=== PATIENT | female | born 1955 | race Caucasian/White ===

== ENCOUNTER 2019-11-29 08:46 | Emergency (ER) | payer MEDICARE, BC, SELFPAY ==
[2019-11-29 08:47] VITALS: BP 114/81; PULSE 66; RESP 16; TEMP 37.2; BMI 36.0
--- NOTE | 2019-11-29 09:45 | RAD_ITS ---
STUDY: X-RAY - PELVIS AND RIGHT HIP REASON FOR EXAM: Female, 63 years old. RIGHT HIP PAIN SINCE JUNE, painful to walk -- unable to straighten leg when laying down, had knee bent for AP supine view, but able to straighten leg more standing so pelvis and another AP hip done upright TECHNIQUE: 4 views of the pelvis and hip. COMPARISON: None. FINDINGS: There is a non-specific bowel gas pattern. Normal visualized soft tissue structures. Normal bilateral iliac wings, sacroiliac joints and visualized sacrum. Normal bilateral superior and inferior pubic rami. Normal pubic symphysis. Normal bilateral ischial tuberosities. Normal visualized femoral head. Normal acetabulum. Normal hip joint. RAD/HIP, UNI W/ Pelvis 2-3 Views IMPRESSION: Normal x-ray examination of the pelvis and hip. Electronically Signed: Govind Herbert DO at 10:48 EDT Tel [phone], Service support ,
--- NOTE | 2019-11-29 09:50 | ED.VIS.GEN ---
History of Present Illness Chief Complaint: Lower Extremity Injury Informant: Patient Onset: Month(s) Context: Gradual Onset Timing: Intermittent Current Severity: Severe Maximum Severity: Severe Narrative: Patient is a 63-year-old male with history of MS and currently on evaluation for right hip pain with Dr. Marmolejo resenting with acute worsening of her right hip pain. Patient states before her pain is been more of her groin region. She saw Dr. Marmolejo 2 weeks ago for it and she was started on Flexeril as well as tramadol. She has an MRI scheduled for Sunday, 3 days from now. She states last night she felt a pop in her right lateral hip and then another pop this morning. She states now her pain is more over her lateral hip. She denies any falls or trauma. She states she is having a hard time raising her leg because it still painful. She does not have actual weakness. Patient has had some mild lower back pain and she states she is also getting an MRI of her back this week. She did have cortisone injection 8 weeks ago by her orthopedist. Patient states she is been dealing with this hip issue since June 2019. Patient denies any associated numbness or tingling. She states she is had more swelling of her lower extremities bilaterally but attributes that to keeping her feet down more. She has the pain is better with rest and worse with movement. No acute injury or exacerbations that she can think of. Past Medical History - Allergies and Home Meds Allergies/Adverse Reactions: Allergies sulfamethoxazole [From Bactrim] Allergy (Verified 11/29/19 08:48) Swelling trimethoprim [From Bactrim] Allergy (Verified 11/29/19 08:48) Swelling Primary Care Physician: Cristhian Gonzalez MD [Primary Care Provider] - Past Medical History: - - Multiple sclerosis Surgical History: - - section Smoking Status: Never smoker Review of Systems General: Denies: Chills, Fever, Sweats Eyes: Denies: Visual changes - bilaterally, Diplopia ENT: Denies: Rhinorrhea, Sore throat Cardiovascular: Denies: Chest pain, Palpitations Respiratory: Denies: Dyspnea, Cough, Dyspnea on exertion Gastrointestinal: Denies: Abdominal pain, Nausea, Vomiting, Diarrhea, Melena, Hematochezia Genitourinary: Denies: Dysuria, Hematuria, Frequency Musculoskeletal: Reports: Swelling - Bilateral lower feet, Extremity Pain - Right hip. Denies: Back pain Skin: Denies: Rash, Wounds Neurological: Denies: Headache, Weakness, Numbness Physical Exam Vital Signs/Narrative: Vital Signs Temp Pulse Resp BP 11/29/19 08:47 98.9 F 66 16 114/81 H Inital Vital Signs reviewed: Yes General: Well nourished, Well developed, No Acute Distress Head: Normocephalic, Atraumatic Eyes: Perrl, EOMI ENT: Moist mucous membranes, No rhinorrhea Neck: Supple, Nontender Cardiovascular: Regular rate, Regular rhythm, No murmurs Respiratory: No distress, CTA bilaterally, Chest nontender Abdomen: Soft, Nontender, Nondistended, Normal bowel sounds Back: Nontender, Normal Inspection. Negative for: CVA tenderness, Spinal tenderness Extremities: No edema, Tenderness - Palpation over the right lateral hip with pain diffusely on range of motion. Difficult to evaluate range of motion secondary to pain., Edema - 2+ bilateral pedal edema, - - Equal strength 5/5 bilateral lower extremities with flexion and extension of the knees as well as dorsiflexion and plantarflexion Skin: Normal color, No rash Neurological: Alert, Oriented x3, Cranial nerves II-XII grossly intact, Normal Strength, Normal Sensation Psychological: Normal affect, Normal Mood Diagnostic/Tx/Re-eval - Medical Decision Making Clinical Impression(s) from Imaging Studies Hip/Pelvis X-Ray 11/29/19 09:45 IMPRESSION: Normal x-ray examination of the pelvis and hip. Electronically Signed: Govind Herbert DO at 10:48 EDT Tel [phone], Service support , She is a treated with acute exacerbation of her right hip pain. She felt a popping sensation when she denies any injury. I did check a x-ray which did not show any acute fracture. Patient was given 4 of IM morphine with significant improvement of her symptoms. She has tramadol and Flexeril for home. She has an MRI scheduled for Sunday and I believe she is stable for follow-up for this. Patient to be discharged home. She is given return precautions. She verbalizes agreement and understanding with this plan. Discharged home in stable condition. ED Disposition - Plan for ED Patient: Disposition: Home or Assisted Living Diagnosis: Right hip pain Instructions: ED Acute Pain [facility] Referrals: Cristhian Gonzalez MD [Primary Care Provider] - Additional Instructions: Please continue to follow-up with orthopedics since very important you get your MRI on Sunday. Your x-ray did not show any acute fracture however the exact cause of your hip pain is not clear. 10 you to take the medications prescribed as well as ibuprofen(Motrin) 3 times daily.
[2019-11-29] MEDS: Morphine 4 MG/ML Syringe IM (10:23)
[2019-11-29 11:36] VITALS: BP 128/103; PULSE 59; RESP 16; TEMP 36.1; O2SAT 97
== END 2019-11-29 11:37 | disposition home or self-care (01) ==
PROVIDERS: Emergency Provider Emergency Medicine; PCP Family Medicine
DX: M25.551 Pain in right hip (principal); G35 Multiple sclerosis; Z88.1 Allergy status to other antibiotic agents; Z88.2 Allergy status to sulfonamides; M54.5 Low back pain
CPT/HCPCS: 73502; 96372; 99283

== ENCOUNTER → 2024-06-27 | Outpatient (CLI) | payer MEDICARE, BC, SELFPAY ==
--- NOTE | 2024-06-27 12:13 | CT_ITS ---
CT RIGHT LOWER EXTREMITY WITH 3-D IMAGING CLINICAL INDICATION: OSTEOARTHRITIS TECHNIQUE: Axial CT images of the right lower extremity (including right hip, right knee, and right ankle) was performed without IV contrast material. Coronal and sagittal reformats were provided. The protocol utilizes one or more of the following dose reduction techniques: automated exposure control, adjustment of mA and/or kV according to patient size, and/or use of iterative reconstruction technique. RADIATION DOSAGE (If Supplied By Facility): CTDIvol = ( 18.86 ) mGy, DLP = ( 1219.82 ) mGycm COMPARISON: No relevant prior comparison study available FINDINGS: Bones: Normal right hip joint. There is tricompartment degenerative arthrosis of the right knee, most pronounced in the medial femorotibial compartment where there is joint space narrowing, marginal osteophyte formation, and subchondral sclerosis/cyst formation. Normal right ankle. Osseous structures are intact without evidence of fracture or dislocation. No lytic or blastic osseous masses. Soft Tissues: There is a small right knee joint effusion. There is a 1.3 cm ossified loose body in the intercondylar notch (axial series 2 image [id number]). The deep soft tissue structures are unremarkable. The superficial soft tissues are unremarkable without evidence of edema, hematoma, or foreign body. CT/Extremity Lower without Contra IMPRESSION: Tricompartment degenerative arthrosis of the right knee, most pronounced in the medial femorotibial compartment. Small right knee joint effusion, with a 1.3 cm osseous loose body in the intercondylar notch. Electronically Signed: Faizan West MD at 15:35 EST ,
== END | disposition home or self-care (01) ==
PROVIDERS: PCP Internal Medicine; Referring Provider Student in an Organized Health Care Education/Training Program; Visit Provider Student in an Organized Health Care Education/Training Program
DX: M17.11 Unilateral primary osteoarthritis, right knee (principal)
CPT/HCPCS: 73700

== ENCOUNTER 2024-07-21 11:53 | Observation (INO) | payer MEDICARE, BC, SELFPAY ==
--- NOTE | 2024-06-27 12:05 | EKG12_ITS ---
Test Reason : PREOP Blood Pressure : */* mmHG Vent. Rate : 77 BPM Atrial Rate : 77 BPM P-R Int : 158 ms QRS Dur : 112 ms QT Int : 368 ms P-R-T Axes : 62 28 16 degrees QTcB Int : 416 ms Normal sinus rhythm Incomplete right bundle branch block Inferior infarct , age undetermined Possible Anterolateral infarct , age undetermined Abnormal ECG Confirmed by GARIMA ROJAS, ASHLEE ([id number]), index editor SHAE LEON ([id number]) on 06/30/2024 6:41:22 AM Referred By: Montana Rivera Confirmed By: ASHLEE PAINTING MD
[2024-06-27 13:58] LABS: Absolute Lymphocyte Count 1.51 X10^3/uL (0.83-4.51); Absolute Neutrophil Count 6.8 X10^3/uL (2.0-7.7); Basophil# 0.05 X10^3/uL; Basophil% 0.5 % (0-1); Eosinophil# 0.23 X10^3/uL; Eosinophils% 2.4 % (0-5); Hematocrit 40.9 % (37-47); Hemoglobin 13.5 g/dL (12.0-15.0); Lymphocyte # 1.51 X10^3/ul (0.83-4.51); Lymphocyte % 15.9 % (19-41); Mean Corpuscular Hgb 30.2 pg (27.0-32.0); Mean Corpuscular Volume 91.5 fL (81-99); Mean Platelet Vol. 9.7 fl (6.2-12.0); Monocyte# 0.84 X10^3/uL; Monocyte% 8.8 % (0-10); NRBC Flagged by Analyzer 0 % (0-5); Neutrophil # 6.82 X10^3/uL (2.7-7.7); Neutrophil % 71.9 % (47-70); Platelet Count 430 K/mm3 (150-450); RBC Distribution Width CV 13.3 % (11.6-14.6); Red Blood Count 4.47 M/mm3 (4.2-5.4); White Blood Count 9.5 K/mm3 (4.4-11.0)
[2024-06-27 14:33] LABS: Albumin, Serum 3.6 g/dL (3.2-5.0); Anion Gap 6 (5-15); BUN 26 mg/dL (7-18); BUN/Creat Ratio 21.3 RATIO (10-20); Calcium,Total 9.8 mg/dL (8.5-10.1); Chloride 106 mmol/L (98-107); Creatinine, Serum 1.22 mg/dL (0.55-1.02); EST Glomerular Filtration Rate 46 mL/min (>60); Est Glom Filt Rate - Afr Amer 56 mL/min (>60); Glucose 123 mg/dL (74-106); Potassium 4.2 mmol/L (3.5-5.1); Sodium Level 137 mmol/L (136-145)
[2024-06-27 15:09] LABS: Magnesium 2.5 mg/dL (1.6-2.6)
--- NOTE | 2024-06-30 15:17 | PAT.ANESEVAL ---
Pre-Assessment Diagnosis/Proposed Procedure Planned Operative Procedure(s): ROBOTIC ASSISTED RIGHT TOTAL KNEE ARTHROPLASTY Anesthesia History Anesthesia History - car mechanic helper: Anesthesia History - car mechanic helper Hx Hospitalization No 06/24/24 14:03 Any Problems With Anesthesia No 06/24/24 14:03 Cholinesterase deficiency No 06/24/24 14:03 You/Your Family Experience No 06/24/24 14:03 fever (hyperthermia) with Relationship Recent Exposure to Contagious Disease Does patient have nerve No 06/24/24 14:03 stimulator Patient instructed to have device shut off --Does patient have Pacemaker or ICD? When Was Last Pacemaker Check QUESTION #4 FULL TEXT: You/Your Family Experience fever (hyperthermia) with Anesthesia Last Oral Intake Last Oral intake: Last Oral Intake NPO since Meds taken in AM with sips of water? Meds patient instructed to take am of surgery PONV PONV - car mechanic helper: PONV - car mechanic helper Female Yes 06/24/24 14:03 HX of Motion Sickness No 06/24/24 14:03 HX of N/V After Surgery No 06/24/24 14:03 Non-Smoker Yes 06/24/24 14:03 Duration of Surgery greater Yes 06/24/24 14:03 than 60 minutes Number of Risk Factors 3 06/24/24 14:03 PONV Score Moderate Risk 06/24/24 14:03 Respiratory Assessment Respiratory Assessment - car mechanic helper: Respiratory Tract Infection Hx - car mechanic helper Hx Respiratory Tract Infection Yes: BRONCHITIS/TREATED/ 06/24/24 14:03 RESOLVED STOP Sleep Apnea STOP Sleep Apnea - car mechanic helper: STOP Sleep Apnea - car mechanic helper Hx Hypertension Yes: CONTROLLED WITH MEDS 06/24/24 14:03 Hx Sleep Apnea No 06/24/24 14:03 CPAP BIPAP Do you snore loudly (louder No 06/24/24 14:03 than talking or can be heard Do you often feel tired/ Yes 06/24/24 14:03 fatigued/ sleepy during daytime? Has anyone observed you stop No 06/24/24 14:03 breathing during sleep? STOP Results Positive 06/24/24 14:03 QUESTION #5 FULL TEXT : Do you snore loudly (louder than talking or can be heard through closed doors)? 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 Specify any problems Hx of Preganancy in last 3 No 06/24/24 14:03 Months Nurse Filling Out Transfusion DSCHRIBER 06/24/24 14:03 & Questions: Date: 06/24/24 06/24/24 14:03 Time: 14:04 06/24/24 14:03 Patient unable to answer at this time (ie. confused, unrespo /Reproduction History /Reproductive History - car mechanic helper: /Reproductive Hx- car mechanic helper Hx Now No 06/24/24 14:03 Gestational Age (in weeks): EDC: Hx Hx Para Hx Section SAB No 06/24/24 14:03 PFSH Medical History (Updated 06/24/24 @ 14:11 by Archana Hunter) Wears contact lenses Wears partial dentures MRSA infection Post-menopausal Alcohol use History of steroid therapy Ambulates with cane Arthritis Bladder disease Fatty liver Multiple sclerosis Difficulty swallowing Asthma Non-smoker Leg cramps History of pain when walking History of edema Hypertension Home Medications ?Medication ?Instructions ?Recorded ?Last Taken ?Type cholecalciferol (vitamin D3) 50 2,000 unit PO DAILY 11/29/19 Unknown History mcg (2,000 unit) capsule fluticasone 100 mcg-salmeterol 50 1 inh inhalation BID 11/29/19 Unknown History mcg/dose blistr powdr for inhalation glatiramer 40 mg/mL subcutaneous 40 mg subcut MOWEFR 11/29/19 Unknown History syringe losartan 100 1 ea PO DAILY 11/29/19 Unknown History mg-hydrochlorothiazide 12.5 mg tablet rosuvastatin 10 mg tablet 20 mg PO DAILY 11/29/19 Unknown History baclofen 20 mg tablet 20 mg PO QHS 06/24/24 Unknown History nifedipine 90 mg tablet,extended 90 mg PO DAILY 06/24/24 Unknown History release 24 hr oxybutynin chloride 10 mg 10 mg PO DAILY 06/24/24 Unknown History tablet,extended release 24 hr spironolactone 25 mg tablet 25 mg PO DAILY 06/24/24 Unknown History Allergy/AdvReac Type Severity Reaction Status Date / Time sulfamethoxazole (From Allergy Swelling Verified 06/24/24 13:51 Bactrim) trimethoprim (From Bactrim) Allergy Swelling Verified 06/24/24 13:51 Surgical History (Updated 06/24/24 @ 14:11 by Archana Hunter) History of esophagogastroduodenoscopy (EGD) Hx of colonoscopy History of Hx of foot surgery Hx of hysterectomy Hx of appendectomy Social History Smoking Status: Never smoker Audit: Pertinent Findings Pertinent Findings EKG Perinent findings: 06/27/2024. Normal sinus rhythm. Inferior infarct age undetermined. Possible anterior lateral infarct age undetermined. Recommendation Anesthesia Recommendation Anesthesia recommendation: OPTIMIZED for anesthesia
[2024-07-21] VITALS (15 sets, daily range): BP systolic 115–181; BP diastolic 62–92; PULSE 64–99; RESP 16–18; TEMP 36.1–37.1; O2SAT 92–99; BMI 31.8
--- NOTE | 2024-07-21 08:06 | PRE.ANES_ITS ---
ASA Classification* ASA Classification ASA Classification: 3 Assessment & Plan Anesthesia* Anesthesia Assessment Anesthesia Assessment: Discussed sedation and/or anesthesia options, risks, benefits, and alternatives with patient/parents/legal guardian/POA. Questions invited. The patient/parents/legal guardian/POA seems to understand and agrees to proceed with anesthesia plan. Reviewed the physical assessment, medical history, allergy history and patient home medications list prior to surgery/procedure/anesthetic and documented any changes. Performed airway and anesthesia risk assessments. Anesthesia Type Anesthesia Type: General (HX of MS, no spinal. weakness, avoid SUX) and Block Anesthesia Focused Assessment* Airway Assessment Mouth opens: >3 cm Mallampati Score: II Focused Labs Anesthesia Preop lab: CBC WBC 9.5 K/mm3 (4.4-11.0) 06/27/24 12:59 RBC 4.47 M/mm3 (4.2-5.4) 06/27/24 12:59 Hgb 13.5 g/dL (12.0-15.0) 06/27/24 12:59 Hct 40.9 % (37-47) 06/27/24 12:59 Plt Count 430 K/mm3 (150-450) 06/27/24 12:59 CHEMISTRY Potassium 4.2 mmol/L (3.5-5.1) 06/27/24 12:59 Sodium 137 mmol/L (136-145) 06/27/24 12:59 Magnesium 2.5 mg/dL (1.6-2.6) 06/27/24 12:58 BUN 26 mg/dL (7-18) H 06/27/24 12:59 Creatinine 1.22 mg/dL (0.55-1.02) H 06/27/24 12:59 Glucose 123 mg/dL (74-106) H 06/27/24 12:59 COAG Pre-Assessment Diagnosis/Proposed Procedure Planned Operative Procedure(s): ROBOTIC ASSISTED RIGHT TOTAL KNEE ARTHROPLASTY Anesthesia History Anesthesia History - verifying specialist: Anesthesia History - verifying specialist Hx Hospitalization No 06/24/24 14:03 Any Problems With Anesthesia No 06/24/24 14:03 Cholinesterase deficiency No 06/24/24 14:03 You/Your Family Experience No 06/24/24 14:03 fever (hyperthermia) with Relationship Recent Exposure to Contagious Disease Does patient have nerve No 06/24/24 14:03 stimulator Patient instructed to have device shut off --Does patient have Pacemaker or ICD? When Was Last Pacemaker Check QUESTION #4 FULL TEXT: You/Your Family Experience fever (hyperthermia) with Anesthesia Last Oral Intake Last Oral intake: Last Oral Intake NPO since Meds taken in AM with sips of water? Meds patient instructed to take am of surgery PONV PONV - verifying specialist: PONV - verifying specialist Female Yes 06/24/24 14:03 HX of Motion Sickness No 06/24/24 14:03 HX of N/V After Surgery No 06/24/24 14:03 Non-Smoker Yes 06/24/24 14:03 Duration of Surgery greater Yes 06/24/24 14:03 than 60 minutes Number of Risk Factors 3 06/24/24 14:03 PONV Score Moderate Risk 06/24/24 14:03 Respiratory Assessment Respiratory Assessment - verifying specialist: Respiratory Tract Infection Hx - verifying specialist Hx Respiratory Tract Infection Yes: BRONCHITIS/TREATED/ 06/24/24 14:03 RESOLVED STOP Sleep Apnea STOP Sleep Apnea - verifying specialist: STOP Sleep Apnea - verifying specialist Hx Hypertension Yes: CONTROLLED WITH MEDS 06/24/24 14:03 Hx Sleep Apnea No 06/24/24 14:03 CPAP BIPAP Do you snore loudly (louder No 06/24/24 14:03 than talking or can be heard Do you often feel tired/ Yes 06/24/24 14:03 fatigued/ sleepy during daytime? Has anyone observed you stop No 06/24/24 14:03 breathing during sleep? STOP Results Positive 06/24/24 14:03 QUESTION #5 FULL TEXT : Do you snore loudly (louder than talking or can be heard through closed doors)? Tobacco Use History Tobacco Use History - verifying specialist: Tobacco Use History - verifying specialist Tobacco Use Smoking Status Never smoker 06/24/24 14:03 Hx Tobacco Use No 06/24/24 14:03 Years Smoking Packs Smoked per Day Smoking Cessation Date was within the last 15 years Hx Smoking Cessation Date Hx Smoking Cessation Counseling Hematologic Medial History Hematologic Hx - verifying specialist: Hematologic Medical Hx - chiropractic assistant Hx of Blood Transfusion No 06/24/24 14:03 Hx of Transfusion in last 3 No 06/24/24 14:03 Months Date of Last Transfusion (if within last 3 months) Ever experience any problems No 06/24/24 14:03 with transfusion(s)? Specify any problems Hx of Preganancy in last 3 No 06/24/24 14:03 Months Nurse Filling Out Transfusion DSCHRIBER 06/24/24 14:03 & Questions: Date: 06/24/24 06/24/24 14:03 Time: 14:04 06/24/24 14:03 Patient unable to answer at this time (ie. confused, unrespo /Reproduction History /Reproductive History - verifying specialist: /Reproductive Hx- verifying specialist Hx Now No 06/24/24 14:03 Gestational Age (in weeks): EDC: Hx Hx Para Hx Section SAB No 06/24/24 14:03 Active Medications Active Medications: Current Medications Generic Name Dose Route Start Last Admin Trade Name Freq PRN Reason Stop Dose Admin Acetaminophen 1,000 mg 07/21/24 10:00 Acetaminophen 500 Mg Tablet PO 07/21/24 10:01 X1 ONE Celecoxib 400 mg 07/21/24 10:00 Celecoxib 200 Mg Capsule PO 07/21/24 10:01 X1 ONE Sodium Chloride 77.4 ml/ 0 ml 07/21/24 10:00 Ropivacaine 200 mg/ OPERA.SITE 07/21/24 10:01 Epinephrine HCl 0.6 mg/ X1 ONE Ketorolac Tromethamine 30 mg/ Morphine Sulfate 5 mg Dexamethasone Sodium Phosphate 10 mg 07/21/24 10:00 Dexamethasone 10 Mg/Ml Vial IV 07/21/24 10:01 X1 ONE Gabapentin 600 mg 07/21/24 10:00 Gabapentin 600 Mg Tablet PO 07/21/24 10:01 X1 ONE Magnesium Sulfate 1 gm/ 102 mls @ 408 mls/hr 07/21/24 10:00 Dextrose IV 07/21/24 10:14 X1 ONE Cefazolin Sodium 2 gm/ N/A 20 mls @ 400 mls/hr 07/21/24 10:00 IV 07/21/24 10:02 PREOP ONE Tranexamic Acid 1,000 mg/ 110 mls @ 660 mls/hr 07/21/24 10:00 Sodium Chloride IV 07/21/24 10:09 X1 ONE Tranexamic Acid 1,000 mg/ 110 mls @ 660 mls/hr 07/21/24 10:00 Sodium Chloride IV 07/21/24 10:09 X1 ONE Sodium Chloride 1,000 mls @ 15 mls/hr 07/21/24 07:55 IV 07/26/24 21:14 .Q48H [facility] Protocol Insulin Human Lispro 1 - 6 unit 07/21/24 10:00 Insulin Lispro 100 Unit/Ml Insuln.Pen SC 07/21/24 18:00 Q4H PRN PRN BG>/= 180, SEE PROTOCOL Protocol PFSH Medical History Wears contact lenses Wears partial dentures MRSA infection Post-menopausal Alcohol use History of steroid therapy Ambulates with cane Arthritis Bladder disease Fatty liver Multiple sclerosis Difficulty swallowing Asthma Non-smoker Leg cramps History of pain when walking History of edema Hypertension Home Medications ?Medication ?Instructions ?Recorded ?Last Taken ?Type cholecalciferol (vitamin D3) 50 2,000 unit PO DAILY 11/29/19 Unknown History mcg (2,000 unit) capsule fluticasone 100 mcg-salmeterol 50 1 inh inhalation BID 11/29/19 Unknown History mcg/dose blistr powdr for inhalation glatiramer 40 mg/mL subcutaneous 40 mg subcut MOWEFR 11/29/19 Unknown History syringe losartan 100 1 ea PO DAILY 11/29/19 Unknown History mg-hydrochlorothiazide 12.5 mg tablet rosuvastatin 10 mg tablet 20 mg PO DAILY 11/29/19 Unknown History baclofen 20 mg tablet 20 mg PO QHS 06/24/24 Unknown History nifedipine 90 mg tablet,extended 90 mg PO DAILY 06/24/24 Unknown History release 24 hr oxybutynin chloride 10 mg 10 mg PO DAILY 06/24/24 Unknown History tablet,extended release 24 hr spironolactone 25 mg tablet 25 mg PO DAILY 06/24/24 Unknown History Allergy/AdvReac Type Severity Reaction Status Date / Time sulfamethoxazole (From Allergy Swelling Verified 06/24/24 13:51 Bactrim) trimethoprim (From Bactrim) Allergy Swelling Verified 06/24/24 13:51 Surgical History History of esophagogastroduodenoscopy (EGD) Hx of colonoscopy History of Hx of foot surgery Hx of hysterectomy Hx of appendectomy Social History Smoking Status: Never smoker Review of Systems (Anesthesia) ROS Narrative System reviewed and no additional complaints, except as documented.
[2024-07-21] MEDS: Lactated Ringers 1,000 ML 999 ML IV ×2 (08:15→12:36)
[2024-07-21] MEDS: Magnesium 1 GM over 15 mins IV (08:35)
[2024-07-21] MEDS: Celecoxib 200 MG Capsule 400 MG PO (08:49)
[2024-07-21] MEDS: Acetaminophen 500 MG Tablet 1000 MG PO ×2 (08:50→17:34)
[2024-07-21] MEDS: Gabapentin 600 MG Tablet PO (08:50)
[2024-07-21 09:14] LABS: Bedside Glucose 132 mg/dL (74-106)
--- NOTE | 2024-07-21 10:00 | KNEE_PTH ---
PATIENT: REINIER MARTIN LOC: [facility]3 U#:[id number] AGE/SX: 68/F ROOM: AK316 RE07/21/[address]: Dr. Montana Rivera DO : 1955 BED: 1 DIS: 07/22/2024 SPEC #: [id number] RECD: 07/21/24 13:27 STATUS: AUBREE MALDONADORamon #: [id number] [place]: 07/21/24 10:[address]: Montana Rivera DEPT: SURGICAL PATHOLOGY RECD BY: Mary Weller ENTERED: 07/21/24 13:59 SP TYPE: TOTAL KNEE OTHR DR: Dr. Patricia Jon MD Tissues: Knee, NOS Procedures: Decalcification bone/plaque Surgery Specimen Level IV HEADER OPERATION: Robotic assisted right total knee arthroplasty PRE-OP DIAGNOSIS: Grade 4 osteoarthritis right knee TISSUE SUBMITTED: Right patella MICROSCOPIC DIAGNOSIS Bone and soft tissue, right knee, total knee replacement/resection: Pieces of bone with degenerative osteoarthritic changes. : 07/24/2024 MICROSCOPIC DESCRIPTION Slides are reviewed. GROSS DESCRIPTION Received is one container designated bone and soft tissue right knee. The specimen consists of multiple fragments of araiza-yellow bone measuring in aggregate 9.0 x 9.0 x 3.5 cm. No soft tissue is identified. A number of bony fragments contain articular surfaces consistent with tibial plateau and femoral condyle and displaying prominent osteophyte formation, eburnation and bone erosion. [employer] sections are submitted in one cassette after decalcification. / MARITO. 07/21/2024 TC:5 CPT: 60147, 04481
[2024-07-21] MEDS: dexAMETHasone 10 MG/ML Vial IV (10:07)
[2024-07-21] MEDS: Cefazolin 2 GM in Syringe 10 ML IV (10:13)
[2024-07-21] MEDS: TXA 1000mg in NS100 100ml (IVPB at Incision) 660 MG IV (10:16)
[2024-07-21] MEDS: JPS (Morphine 10mg/ml) OPERA.SITE (11:02)
[2024-07-21] MEDS: TXA 1000mg in NS100 100ml (IVPB at Closure) 660 MG IV (11:11)
--- NOTE | 2024-07-21 12:10 | RAD_ITS ---
STUDY: X-RAY - RIGHT KNEE REASON FOR EXAM: Female, 68 years old. Post op -- AP and Lateral xray of operative knee in PACU. TECHNIQUE: 2 views of the right knee. COMPARISON: None. FINDINGS: There are new postoperative changes related to right total knee arthroplasty with patellar resurfacing. There is a vertical staple line along the anterior aspect of the knee. There is gas in the patellofemoral joint recess and anterior soft tissues, compatible with recent surgery. The orthopedic hardware components are intact. There is no periprosthetic fracture. Normal proximal tibiofibular articulation. RAD/Knee 1 or 2 Views IMPRESSION: New postoperative changes related to right total knee arthroplasty. Electronically Signed: Faizan West MD at 14:03 EST ,
--- NOTE | 2024-07-21 12:15 | PCM.POST.ANE ---
Anesthesia: Postop Eval I Current Vital Signs Temperature: 97 F Pulse Rate: 67 Blood Pressure: 151/69 Respiratory Rate: 16 Pulse Ox: 99 Oxygen Delivery Method: Nasal Cannula Oxygen Flow Rate (L/min): 4 Assessment Airway patent: Yes Spontaneous unlabored respirations: Yes Mental status: Awake nausea: No Vomiting: No Anesthesia Complication: No Fluid Hydration Crystalloid volume administer (ml): 500 Total IV fluid infused: 500 Progress Note Anesthesia document: Postop Eval 1 completed: Yes
--- NOTE | 2024-07-21 12:24 | PCM.POSTANE2 ---
Anesthesia Postop Eval I Sum Postop Eval Completion status Anesthesia document: Postop Eval 1 completed: Yes Anesthesia Postop Eval I Summary Anesthesia Postop Eval I Summary: Anesthesia Postop Eval I: Assessment Summary Airway patent Yes 07/21/24 12:24 Spontaneous unlabored Yes 07/21/24 12:24 respirations Mental status Awake 07/21/24 12:24 nausea No 07/21/24 12:24 Vomiting No 07/21/24 12:24 Anesthesia Postop Eval I: Fluid Summary Crystalloid volume administer 500 07/21/24 12:24 (ml) Colloids volume administered ( ml) Blood Product volume administered (ml) Total IV fluid infused 500 07/21/24 12:24 Anesthesia Postop Eval I: Summary Notes Anesthesia Complication No 07/21/24 12:24 Anesthesia Complication Comment: Post-operative progress note Anesthesia: Postop Eval II Evaluation Mental status: Awake Pain Level: 0 nausea: No Vomiting: No
--- NOTE | 2024-07-21 13:36 | OP.PCM_ITS ---
Operative Report (Standard) Operative Information Date of Procedure: 07/21/24 Pre-Operative Diagnosis: Right knee osteoarthritis Post-Operative Diagnosis: Right knee osteoarthritis Surgery/Procedure Performed: Robotic arm assisted right total knee arthroplasty saxophone teacher: Yes Mechanic Welder Truck Driver: Esther Beckham Tasks completed by first beater: Opening & closing, Implanting device, Hemostasis: Electrocautery and Retracting Additional medical office receptionist assistant?: No Type of Anesthesia: General RN Documented Start/Stop Times: Operation Date: 07/21/24 10:00 Case Time Into Pre-Op 07/21/24 07:52 Out of Pre-Op 07/21/24 09:56 Anesthesia Start 07/21/24 10:00 Into Room 07/21/24 10:00 Procedure Start 07/21/24 10:20 Procedure End 07/21/24 11:31 Anesthesia End 07/21/24 11:37 Out of Room 07/21/24 11:37 Into Recovery 07/21/24 11:40 Into Phase II Recovery 07/21/24 12:51 Out of Recovery 07/21/24 12:51 Procedure Start Time: 10:20 Procedure Stop Time: 11:31 Select all DRAINS/GRAFTS/IMPLANTS that apply: Implanted device Implanted device details: Klinq triathlon size #3 CR press-fit femur, size #3 press-fit tibia, 11 mm CS polyethylene bearing Estimated Blood Loss: 50 cc Specimen collected: Yes Description of specimen(s) removed: Right total knee resections Description of surgery: Description of surgery: Patient was identified in the preoperative holding area by name, medical record number, and date of . Informed consent was confirmed with the patient. The operative knee was marked with a surgical marker. At time of her procedure, patient brought to the operative suite and positioned supine a standard operating table. General anesthesia was induced and LMA placed. All bony prominences were well-padded. We then placed a well-padded pneumatic tourniquet on the right upper thigh. The right upper extremity was brought across patient's chest throughout the procedure. We then prepped and draped the right lower extremity in a normal, sterile orthopedic fashion. We performed a timeout with all parties in attendance in agreement with the side, site, operation be performed. No concerns were voiced and would like to proceed with surgery. 2 g Ancef was administered prior to the incision by anesthesia staff as well as 1 g IV TXA. First exsanguinated the right lower extremity with a Esmarch bandage. Tourniquet was inflated to 250 mmHg for 46 minutes. Esmarch was removed. I planned a standard midline approach to the right knee approximately 15 cm in length. Skin was sharply incised with a 10 blade scalpel developing full- thickness layers down to the retinaculum. Layers were developed identifying the VMO. I then planned a standard medial parapatellar arthrotomy performed in flexion. The anterior horn of the medial meniscus was released. Hoffa's fat pad was then released. I then everted the patella in extension and brought the knee into 90 degrees of flexion. The anterior horn of the lateral meniscus was then released. The ACL was split in its mid substance with a 10 blade. We then brought the knee back into extension. The patella was everted. Patella demonstrated grade I chondromalacia without osteophytes. Elected to leave the patella hamilton without resurfacing. Checkpoints were placed in the tibia and femur in standard fashion. I then placed pins in the metaphyseal distal femur medial to lateral for the Ben arrays. In similar fashion, I made a 2 cm incision approximately a handsbreadth distal to the tibial tubercle along the medial aspect of the tibia, drilling 2 bicortical pins for the tibial array. The knee was brought into flexion. The patella was subluxed laterally but not everted. Medial lateral retractors were placed. We then utilized the [employer] software to confirm our planned surgical procedure and oriented with the patient's osseous anatomy. All checks with the Ben system were confirmed. No significant deformity was noted. Standard cuts were made. Sawblade was then brought in. I first started with the tibial cut, ensuring protection of the MCL and patellar tendon. A tibial wafer was then excised. I then proceeded to make the posterior femoral, anterior, anterior chamfer cuts with the same blade. Ligaments were protected with Intermedics retractors. Sawblade was then exchanged to perform the distal femoral and posterior chamfer cuts. The robot was then removed from the surgical field. Remaining loose bone and meniscus was excised carefully. Posterior osteophytes were removed from the distal femur with a curved osteotome and rongeur. Trial components were then placed. Balance was excellent in both extension and 90 degrees flexion with an 11 mm polyethylene. No mid flexion instability was apparent. Tracking was excellent. We then marked for tibial baseplate. Distal femoral pegs were drilled. Tibial keel was punched. Press-fit drill guide was placed and drilled. Periarticular block was administered. The wound was copiously irrigated with normal saline solution. Tibial and femoral components were then press-fit in standard fashion with excellent pullout strength. Tourniquet was deflated. Hemostasis achieved with Bovie cautery. 11 mm polyethylene was then placed and impacted per manufacture recommendations. Final components appeared very well balanced with excellent range of motion. 3-minute dilute sterile Betadine soak was performed. The wound was copiously irrigated with normal saline solution. Capsule was closed watertight with #1 strata fix barbed suture. Deeper bursal layer was reapproximated with 0 Vicryl suture. Dermis was reapproximated buried interrupted 2-0 Vicryl suture. Skin was finally reapproximated wanda. Patient tolerated the procedure well without apparent complication. She was safely awakened in the operative suite, transferred to her hospital bed and subsequently to PACU in stable condition. Need for skilled medical office receptionist assistant: Esther Beckham PA-C was critical to the outcome of the case. During the course of the procedure the physician medical office receptionist assistant played a vital role. Her intimate knowledge of my steps in the procedure aided in safe and expedient completion of the procedure. The PA played a vital role in positioning particularly in obtaining the appropriate positioning. The PA was also vital in the retraction of soft tissues during the exposure and projecting vital structures. The PA was also vital and protecting soft tissues during times of bony cuts. She also played a vital role in closure with my direct supervision. The PA was also important during reduction and dislocation of the joint and trials intraoperatively. Post Operative Plan: Patient will be placed in observation overnight for medical monitoring and early convalescence. Weightbearing: Range of motion and weightbearing as tolerated right lower extremity. Antibiotics: Ancef 1 g every 8 hours x 3 doses, plan for 1 week oral doxycycline prophylactic due to immune modulating multiple sclerosis medication therapy DVT Prophylaxis: Aspirin 81 mg twice daily for DVT prophylaxis, SCDs, early mobilization, LEXI Sanchez: None Dressing: Maintain silver dressing x5 days X-Rays: 2-week x-rays in the office. Follow-up: 2 weeks in my office for staple removal Surgical Findings: Stable right knee following final implantation of components with good balance. Excellent tracking. Complications Complications: No Admit VTE Documentation VTE Present on Admission: No VTE Mechan Device Prophylaxis: SCD's and Thigh High LEXI Hose VTE Pharm Prophylaxis ordered?: Yes
[2024-07-21] MEDS: Lactated Ringers 1,000 ML 125 ML IV (15:35)
[2024-07-21] MEDS: Aspirin 81 MG TAB.CHEW PO (17:34)
[2024-07-21] MEDS: Cefazolin 1 GM/50 ML BAG IV (17:35)
[2024-07-21] MEDS: 0.9% Saline Lock 10 ML Syringe IV (17:35)
[2024-07-21] MEDS: Ondansetron 4 MG/2 ML Vial IV (17:35)
[2024-07-21] MEDS: Albuterol 2.5 MG/3 ML VIAL.NEB. INHALATION (19:45)
[2024-07-21] MEDS: Budesonide Respules 0.5 MG/2 ML AMPUL.NEB. INHALATION (19:45)
[2024-07-21] MEDS: Senna/Docusate Sodium 1 Tablet 2 TABLET PO (20:44)
[2024-07-21] MEDS: Atorvastatin Calcium 20 MG Tablet PO (20:44)
[2024-07-21] MEDS: Baclofen 10 MG Tablet 20 MG PO (20:44)
--- NOTE | 2024-07-21 21:22 | PCM.PN.HOSP ---
Reason for Visit Reason for Visit: Right knee pain Subjective Subjective Patient is a 68-year-old female who presented to [facility] for an elective right total knee arthroplasty on 07/21/2024. She had had issues ongoing with the right knee pain and failed conservative treatment. We have been consulted for postoperative management of chronic medical issues. At baseline she has essential hypertension, multiple sclerosis, urinary incontinence, fatty liver, previous MRSA infection, and hyperlipidemia. Patient was seen postoperatively on the medical floor. Patient is sitting up in a chair at the bedside. Denies any current pain. Does states she had femoral nerve block. Is complaining of some mild nausea and requesting antiemetic. Objective Data Objective Data Vital Signs: Vital Signs Temp Pulse Resp BP Pulse Ox O2 Del Method O2 Flow Rate 97.8 F 71 16 115/66 98 Room Air 4 07/21/24 17:00 07/21/24 19:45 07/21/24 19:45 07/21/24 17:00 07/21/24 17:00 07/21/24 17:00 07/21/24 12:45 Oxygen Flow Rate (L/min) 4 Oxygen Delivery Method Room Air Weight: 84 kg Body Mass Index (BMI) 31.8 Intake & Output: Intake and Output for Last 24 Hours 07/19/24 07/20/24 07/21/24 23:59 23:59 23:59 Intake Total 2632 / 2632 Balance 2632 / 2632 Lab / Micro Data 06/27/24 12:59 06/27/24 12:59 Labs: Laboratory Results - last 24 hr 07/21/24 08:53: POC Glucose 132 H Micro: Microbiology 06/27/24 12:59 Swab (Method) Nasal Screen MRSA/MSSA - Final Radiography Diagnostic Testing: Radiology Impression Knee X-Ray 07/21/24 12:10 IMPRESSION: New postoperative changes related to right total knee arthroplasty. Electronically Signed: Faizan West MD at 14:03 EST , Physical Exam Const alert, oriented x3, no apparent distress and well nourished; Negative for average body habitus Constitutional Narrative: Obese, upper middle-aged, white female, sitting up in a chair at the bedside, watching TV, currently appears comfortable, nontoxic, very pleasant HEENT head/scalp atraumatic and moist oral mucous membranes Head and Scalp: normocephalic Resp normal respiratory effort, no retractions, no use of accessory muscles and clear to auscultation bilaterally Auscultation: Negative for rales, rhonchi or wheezes Cardio regular rate, regular rhythm, S1 normal heart sound, S2 normal heart sound, no murmurs, no rub, no gallops and no clicks GI normal to inspection, nondistended, normoactive bowel sounds, soft to palpation and non-tender Extremity no clubbing, cyanosis or edema Extremity Narrative: Bilateral LEXI hose in place, polar ice on right knee, 2+ pedal and radial pulses Neuro oriented x3 and no focal motor deficits Speech: speech normal Psych affect normal Psych Narrative: Very pleasant, interacts appropriately Assessment & Plan Assessment/Plan (1) Osteoarthritis of right knee: PLAN: Plan Right knee pain -Postop day 0 right total knee arthroplasty -Pain management prior primary -Would recommend scheduled bowel regimen while on pain medications -Postoperative antibiotics per orthopedic surgery and it appears that they are recommending a 1 week postoperative oral doxycycline secondary to immune modulating medication for MS -DVT prophylaxis has been recommended is aspirin 81 mg twice daily, SCDs and LEXI hose -Postoperative dressing is to remain intact for 5 days next-patient is weightbearing as tolerated -PT/OT consultation pending for a.m. -Add as needed Compazine for breakthrough nausea in addition to Zofran MS -Patient is immunocompromised and glatiramer at baseline -Continue home baclofen Asthma -Continue home inhaler with therapeutic substitution Essential hypertension -Continue home nifedipine -Continue losartan -Continue home hydrochlorothiazide -continue home Aldactone Hyperlipidemia -Continue home rosuvastatin DVT prophylaxis -Aspirin 81 mg p.o. twice daily per orthopedic surgery -SCDs Charges/Coding Visit Charges Inpatient E&M: 33705 Subs Hosp L2
[2024-07-21] MEDS: proCHLORPERazine 10 MG/2 ML Vial 5 MG IV (22:11)
[2024-07-22 00:15] VITALS: BP 130/68; PULSE 60; RESP 16; TEMP 36.6; O2SAT 95
[2024-07-22] MEDS: Cefazolin 1 GM/50 ML BAG IV (01:09)
[2024-07-22] MEDS: Acetaminophen 500 MG Tablet 1000 MG PO ×2 (01:09→09:18)
[2024-07-22 04:15] VITALS: BP 140/79; PULSE 69; RESP 16; TEMP 36.6; O2SAT 99
[2024-07-22 06:37] LABS: Hematocrit 33.8 % (37-47); Hemoglobin 11.4 g/dL (12.0-15.0); Mean Corp Hgb Conc 33.7 g/dL (32-36); Mean Corpuscular Hgb 30.5 pg (27.0-32.0); Mean Corpuscular Volume 90.4 fL (81-99); Mean Platelet Vol. 9.4 fl (6.2-12.0); Platelet Count 399 K/mm3 (150-450); RBC Distribution Width SD 43.4 fl (35.1-43.9); Red Blood Count 3.74 M/mm3 (4.2-5.4); White Blood Count 16.1 K/mm3 (4.4-11.0)
[2024-07-22] MEDS: Albuterol 2.5 MG/3 ML VIAL.NEB. INHALATION (06:58)
[2024-07-22] MEDS: Budesonide Respules 0.5 MG/2 ML AMPUL.NEB. INHALATION (06:58)
[2024-07-22 07:00] VITALS: PULSE 66; RESP 16
[2024-07-22 07:02] VITALS: O2SAT 98
[2024-07-22 08:02] LABS: Anion Gap 7 (5-15); BUN 17 mg/dL (7-18); BUN/Creat Ratio 16.8 RATIO (10-20); Calcium,Total 9.2 mg/dL (8.5-10.1); Chloride 102 mmol/L (98-107); Creatinine, Serum 1.01 mg/dL (0.55-1.02); EST Glomerular Filtration Rate 58 mL/min (>60); Est Glom Filt Rate - Afr Amer 70 mL/min (>60); Estimated Creatinine Clearance 55.12 ml/min; Glucose 120 mg/dL (74-106); Potassium 4.2 mmol/L (3.5-5.1); Sodium Level 135 mmol/L (136-145)
[2024-07-22] MEDS: oxyCODONE 5 MG Tablet PO (09:18)
[2024-07-22] MEDS: Losartan Potassium 100 MG Tablet PO (09:27)
[2024-07-22] MEDS: hydroCHLOROthiazide 12.5mg 12.5 MG PO (09:27)
[2024-07-22] MEDS: Tolterodine Tartrate 2 MG CAP.SA PO (09:27)
[2024-07-22] MEDS: Senna/Docusate Sodium 1 Tablet 2 TABLET PO (09:27)
[2024-07-22] MEDS: Spironolactone 25 MG Tablet PO (09:27)
[2024-07-22] MEDS: Aspirin 81 MG TAB.CHEW PO (09:27)
[2024-07-22] MEDS: NIFEdipine 90 MG Tablet PO (09:27)
[2024-07-22] MEDS: Cholecalciferol (VIT D3) 25 MCG TABLET (1,000 UNITS) 50 MCG PO (09:27)
[2024-07-22 09:45] VITALS: BP 145/55; PULSE 69; RESP 18; TEMP 36.6; O2SAT 99
--- NOTE | 2024-07-22 09:45 | CASEMGMT ---
Addendum entered by Viridiana Jasso 07/22/24 11:29: Pt requested medications be delivered to room for [facility]. Notified ISAIAH GUEVARA on floor. Original Note: ISAIAH GUEVARA Assessment: Face to Face with pt for initial transition planning/care coordination assessment. ISAIAH GUEVARA introduced self and role at [facility], pt voices understanding and consents to assessment. Pt is A&O x4 and answers all questions appropriately at this time. Pt sitting up in chair in no distress, spouse sitting at bedside. Care providers, pharmacy, and demographics verified/updated. Strata: 1 Admitting Dx: Robotic Assisted R total Knee Arthroplasty, ER PCP: Specialists: Miguel, Ortho; Braxton, Neurologist Preferred Pharmacy: [facility] Insurance: Roland TORO Prescription Benefit: yes LNOK: Sharita, Julio Living Arrangements: Pt lives with in a 2 story home with zero steps to enter. ADLs: Pt states I at baseline. Transportation: Pt drives self and denies concerns with transportation. DME: WW, FWW, Cane, Shower chair HHC/SNF: Pt reports previously had HHC but does not recall what agency. Pt states no concerns with going home at time of dc. Pt states OP therapy scheduled to start 07/24/24. Pt states no further concerns/needs. CM to follow. Advised pt to ask CM if any further question/concerns/needs arise, voices understanding. Pt Goal: home Plan: Home with family support and OP therapy. Miguel Angel COLON CM
--- NOTE | 2024-07-22 11:07 | DCINST_ITS ---
Discharge Instructions Diet Discharge Diet: No restrictions DC O2, CPAP, BIPAP needs Home O2 Discharge instructions: No Follow Up Care Test Results: Test results from this visit will be discussed in further detail at your follow- up appointment, if applicable. Discharge Plan Admission Admit Date/Time: 07/21/24 11:53 Primary Reason for Your Visit: Right knee replacement Attending Provider: Montana Rivera Primary Care Provider: Patricia Jon Consulting Providers: Montana Zhang Instructions Additional Instructions / Restrictions: Follow preprinted instructions from your surgeons office Discharge Orders/Prescriptions Prescriptions: New sennosides-docusate sodium [Stimulant Laxative Plus] 8.6-50 mg Tablet 2 tab PO BID 7 Days Qty: 28 0RF acetaminophen 500 mg Tablet 1,000 mg PO Q8H 30 Days Qty: 180 0RF aspirin 81 mg Tablet,Chewable 81 mg PO BIDCM 28 Days Qty: 56 0RF oxycodone 5 mg Tablet 5 - 10 mg PO Q4H PRN PRN (Reason: Pain Score 4-10) 7 Days Qty: 42 0RF doxycycline hyclate 100 mg capsule 100 mg PO BID 7 Days Qty: 14 0RF Continued fluticasone propion-salmeterol 100-50 mcg/dose blister with device 1 inh inhalation BID rosuvastatin 10 MG tablet 20 mg PO DAILY losartan-hydrochlorothiazide 1 EACH tablet 1 ea PO DAILY cholecalciferol (vitamin D3) 2,000 UNIT capsule 2,000 unit PO DAILY glatiramer 40 mg/mL syringe 40 mg subcut MOWEFR oxybutynin chloride 10 mg tablet extended release 24hr 10 mg PO DAILY spironolactone 25 mg tablet 25 mg PO DAILY baclofen 20 mg tablet 20 mg PO QHS nifedipine 90 mg tablet extended release 24hr 90 mg PO DAILY Referrals / Follow Up: Montana Rivera DO [Med Staff - Active Staff] - Within 2 Weeks Disposition Disposition (needs filled in before D/C Order can be placed): Home, Self Care
--- NOTE | 2024-07-22 11:07 | PN.ORTHO_ITS ---
Subjective Subjective Patient seen and examined. She states she was able to walk the halls with therapy. She feels she is ready to go home. Denies any fevers, chills, nausea vomiting, chest pain or shortness of breath. Urinating without difficulty. Pain controlled current pain regimen. Objective Data Objective Data Vital Signs: Vital Signs Temp Pulse Resp BP Pulse Ox O2 Del Method O2 Flow Rate 98 F 66 16 140/79 H 98 Nasal Cannula 2 07/22/24 04:15 07/22/24 07:00 07/22/24 07:00 07/22/24 04:15 07/22/24 07:02 07/22/24 07:02 07/22/24 07:02 Oxygen Flow Rate (L/min) 2 Oxygen Delivery Method Nasal Cannula Weight: 185 lb 3.013 oz Body Mass Index (BMI) 31.8 Intake & Output: Intake and Output for Last 24 Hours 07/20/24 07/21/24 07/22/24 23:59 23:59 23:59 Intake Total 3432 / 3432 50 / 50 Balance 3432 / 3432 50 / 50 Lab / Micro Data 07/22/24 06:05 07/22/24 06:05 Labs: Laboratory Results - last 24 hr 07/22/24 06:05: WBC 16.1 H, RBC 3.74 L, Hgb 11.4 L, Hct 33.8 L, MCV 90.4, MCH 30.5, MCHC 33.7, RDW Std Deviation 43.4, RDW Coeff of Ortega 13.0, Plt Count 399, MPV 9.4, Sodium 135 L, Potassium 4.2, Chloride 102, Carbon Dioxide 25.0, Anion Gap 7, BUN 17, Creatinine 1.01, Estim Creat Clear Calc 55.12, Est GFR (MDRD) Af Amer 70, Est GFR (MDRD) Non-Af 58 L, BUN/Creatinine Ratio 16.8, Glucose 120 H, Calcium 9.2 Micro: Microbiology 06/27/24 12:59 Swab (Method) Nasal Screen MRSA/MSSA - Final Radiography Diagnostic Testing: Radiology Impression Knee X-Ray 07/21/24 12:10 IMPRESSION: New postoperative changes related to right total knee arthroplasty. Electronically Signed: Faizan West MD at 14:03 EST , Physical Exam Narrative General - A&Ox3, NAD. VSS/AF Right lower extremity -incisional dressing C/D/I. SILT Sural, Saphenous, SPN, DPN, Tibial N. distributions. DP, PT 2+. BCR. DF, PF, EHL 5/5. No calf TTP. Assessment & Plan Assessment/Plan (1) Osteoarthritis of right knee: QUALIFIERS: Osteoarthritis type: primary Qualified Code(s): M 17.11 - Unilateral primary osteoarthritis, right knee PLAN: POD# 1 s/p robotic arm assisted right total knee arthroplasty -Patient doing very well. Discharge home today. Outpatient physical therapy scheduled in 2 days. Extended antibiotic prophylaxis ordered in the form of 7 days of doxycycline due to immunosuppressive medication. - Pain control - Medicine following for medical management - PT/OT - DVT PPX -Multimodal with aspirin 81 mg twice daily, SCDs, LEXI griffiths, early mobilization. - Case management - D/C planning
--- NOTE | 2024-07-22 11:12 | CASEMGMT ---
TC to [facility], spoke to Eugenie, she is aware pt would like meds delivered to the room and to call the at [phone] for payment.
--- NOTE | 2024-07-22 11:21 | CASEMGMT ---
Met with pt to complete OLIVAS form. OLIVAS form explained to pt at this time who voiced understanding and signed form. Original form placed in pt?s chart and copy provided to the pt.
== END 2024-07-22 13:04 | disposition home or self-care (01) ==
LOC: SDC 13:42 → MS3 13:42
PROVIDERS: Anesthesiology; Admitting Provider Student in an Organized Health Care Education/Training Program; PCP Internal Medicine; Referring Provider Student in an Organized Health Care Education/Training Program; Visit Provider Student in an Organized Health Care Education/Training Program
PROC: 0SRC0JZ Replacement of Right Knee Joint with Synthetic Substitute, Open Approach (ICD-10-PCS; CPT 27447; principal; 2024-07-21 09:30)
DX: M17.11 Unilateral primary osteoarthritis, right knee (principal); G35 Multiple sclerosis; K76.0 Fatty (change of) liver, not elsewhere classified; R11.0 Nausea; R32 Unspecified urinary incontinence; E78.5 Hyperlipidemia, unspecified; I10 Essential (primary) hypertension; J45.909 Unspecified asthma, uncomplicated; Z79.899 Other long term (current) drug therapy; Z86.14 Personal history of Methicillin resistant Staphylococcus aureus infection
CPT/HCPCS: 27447; S2900; 01402; 64447